=== PATIENT | male | born 2000 | race Caucasian/White ===

== ENCOUNTER 2023-03-10 14:38 | Inpatient (IN) ==
--- NOTE | 2023-03-10 14:49 | ED Triage Note ---
Date of Service March 10, 2023 Provider in Triage Author: Ginette Mendosa History of Present Illness This patient was briefly evaluated while in triage. An abbreviated physical exam was performed. This patient is a 22-year-old Male who presents to the ED for evaluation of "I have an obstructed and infected kidney on the right side." Pt. was seen in the ED at [facility] and referred here. Symptoms of right lower abdominal pain and burning/blood with urination started yesterday. Brief review of external medical records ([facility] ED records): CT abd/pelvis with IV contrast impression: Severe right hydronephrosis without visible calculus, likely due to chronic UPJ obstruction. Physical Exam VITALS: Vitals are noted on the nurse's note and reviewed by myself. GENERAL: This is a 22 year old male, in no acute distress, nondiaphoretic, well- developed well-nourished. SKIN: No obvious rashes, edema, erythema HEAD: Normocephalic atraumatic. EYES: Conjunctivae without injection, sclerae without icterus. NECK: No JVD. LUNGS: No retractions or accessory muscle use. MUSCULOSKELETAL: Normal gait. NEURO: Patient was alert and oriented to person place and time. No focal neurological deficits. Initial orders for labs and / or imaging were placed and patient was placed in the waiting area until a bed is available. Please see further documentation for the full ED course. MDM / Impression Impression Impression: Acute right flank pain, MIRIAM (acute kidney injury), Hydronephrosis, Leukocytosis, Acute UTI Impression: Hydronephrosis Qualifiers: Hydronephrosis type: with other ureteral stricture Qualified Code(s): N13.1 - Hydronephrosis with ureteral stricture, not elsewhere classified Leukocytosis Qualifiers: Leukocytosis type: unspecified Qualified Code(s): D72.829 - Elevated white blood cell count, unspecified
[2023-03-10] MEDS ORDERED: SODIUM CHLORIDE 0.9% 1,000 ML IV STA (15:40)
[2023-03-10] MEDS ORDERED: ACETAMINOPHEN 1,000 MG/100 ML VIAL IV STA (16:08)
[2023-03-10 16:13] LABS: Basophils # (auto) 0.03 K/uL (0.00-0.20); Basophils % (auto) 0.2 %; Hematocrit (blood only) 45.8 % (42.0-52.0); Hemoglobin 15.8 g/dl (14.0-18.0); Immature Granulocytes # (auto) 0.07 K/uL (0.01-0.20); Immature Granulocytes % (auto) 0.4 %; Lymphocytes # (auto) 1.07 K/uL (1.20-3.40); Lymphocytes % (auto) 6.7 %; Mean Corpuscular Hemoglobin 29.4 pg (25.0-34.0); Mean Corpuscular Hgb Conc 34.5 g/dL (32.0-36.0); Mean Corpuscular Volume 85.1 fL (80.0-100.0); Mean Platelet Volume 10.3 fL (9.4-12.4); Monocytes # (auto) 1.51 K/uL (0.11-0.59); Monocytes % (auto) 9.4 %; Neutrophils # (auto) 13.39 K/uL (1.40-6.50); Neutrophils % (auto) 83.3 %; Platelet Count 172 K/uL (130-400); RDW Coefficient of Variation 12.9 % (11.5-14.5); RDW Standard Deviation 39.6 fL (36.4-46.3); Red Blood Count 5.38 M/uL (4.70-6.10); White Blood Count 16.07 K/ul (4.8-10.8)
--- NOTE | 2023-03-10 16:16 | Emergency Department Note ---
Impression & Plan Acute right flank pain, MIRIAM (acute kidney injury), Hydronephrosis, Leukocytosis, Acute UTI ED Provider Note NAME: MARYBETH KOEHLER AGE: 22 SEX: M : 2000 ARRIVES VIA: Walk-In INFORMANT: [Patient][mother] ED PROVIDER(S): [Celso Barrow MD] CHIEF COMPLAINT: Flank pain HISTORY OF PRESENT ILLNESS: The patient is a 22-year-old male who presents to the ED with right flank pain that began this morning. The patient did notice some blood in the urine and some burning with urination. He felt some nausea. The patient has a history of right UPJ obstruction. The patient went to the [place] ED, he was found to have a severe hydronephrosis on the right secondary to UPJ obstruction. This was diagnosed by CT imaging. Urology was not available at [place]. Patient was to be a direct admit to our hospital however, there were no beds available. He was sent to our ER for evaluation. PMHx/PSHx/Social Hx: See Below PHYSICAL EXAM: GENERAL: Patient is in no acute distress. HEENT: No acute trauma, normocephalic atraumatic, mucous membranes moist, no nasal congestion. NECK: No stridor, no adenopathy, no meningismus, trachea is midline. LUNGS: Clear to auscultation bilaterally, no wheeze, no rhonchi, breath sounds equal. HEART: Without murmurs gallops or rubs, regular rate and rhythm. ABDOMEN: Soft, nontender, no peritonitis. EXTREMITIES: No cyanosis, full range of motion of all the joints without pain or difficulty. NEUROLOGIC: Oriented x 3, no acute motor or sensory deficits, no focal weakness. SKIN: No jaundice, no diaphoresis. DIFFERENTIAL DIAGNOSIS: Hydronephrosis, ureteral obstruction, renal stone, pyelonephritis, renal failure, UTI, among others. EMERGENCY DEPARTMENT PROCEDURES: MEDICAL DECISION MAKING: There is a moderate leukocytosis, this certainly could be consistent with infection. There was a normal hemoglobin and platelet count. There was evidence for some mild acute kidney injury with a creatinine of 1.67. No electrolyte abnormality in need of emergent correction. No concerning liver enzyme elevation. No evidence for pancreatitis. Urinalysis was consistent with infection, urine culture is pending. KUB shows right-sided hydronephrosis without any obvious ureteral stone. On exam, the patient was not toxic or febrile. He was only in minimal discomfort during my evaluation. The patient was given IV Tylenol, IV ceftriaxone, IV saline. The patient is in need of a hospital stay. He appears to have a urinary obstruction and potentially a UTI. I did speak with urology, Dr. Reed. The patient is to be hospitalized. Urology will see the patient in consult. I spoke with the patient and his family, I spoke with case management. The on- call hospitalist was consulted. Prior/Outside records/notes reviewed: ED workup from the [place] [facility] ER from earlier today. Imaging/x-ray results per my interpretation: KUB does show right-sided hydronephrosis. No obvious ureteral stone. Chronic Medical/Social conditions affecting care: UPJ obstruction. Care/Management discussed with: Urology-Dr. Reed, case management and the on- call hospitalist Level of care consideration(s): After review of the information above and other included data: --I believe the patient requires escalation of care to admission DISPOSITION: Admission with urology consult Past Med/Surg History Medical History UPJ (ureteropelvic junction) obstruction Social History Smoking Status: Never smoker Preferred Language: Upper Sorbian Feels Safe at Home: Yes Allergies Allergies Allergy/AdvReac Type Severity Reaction Status Date / Time pineapple Allergy Intermediate Redness of Verified 03/10/23 21:30 Skin-with pineapple juice Home Meds Home Medications Medication Instructions Recorded Confirmed No Known Home Medications 03/10/23 03/10/23 Results & Data (ED) Vital Signs Vital Signs - 24 hr 03/10/23 14:46 Temperature 36.7 C Temperature Source Temporal Artery Scan Pulse Rate 117 H Respiratory Rate 18 Respiratory Effort / Characteristics Non-Labored Spontaneous Respiratory Depth Normal Blood Pressure 118/94 Blood Pressure Mean 102 Blood Pressure Position Sitting Pulse Oximetry 94 Oxygen Delivery Method Room Air Sepsis Recent Fever Within 48 Hours No Sepsis New/Unexplained Change in Mental Status No Sepsis Action Taken by Nursing No Action Required Home Medications Current Medication List: was personally reviewed by me Laboratory Data Attestation: I reviewed the patient's lab results. 03/10/23 15:52 03/10/23 15:52 Lab Results 03/10/23 03/10/23 Range/Units 15:52 16:11 WBC 16.07 H (4.8-10.8) K/ul RBC 5.38 (4.70-6.10) M/uL Hgb 15.8 (14.0-18.0) g/dl Hct 45.8 (42.0-52.0) % MCV 85.1 (80.0-100.0) fL MCH 29.4 (25.0-34.0) pg MCHC 34.5 (32.0-36.0) g/dL RDW Std Deviation 39.6 (36.4-46.3) fL RDW Coeff of Al[place] 12.9 (11.5-14.5) % Plt Count 172 (130-400) K/uL MPV 10.3 (9.4-12.4) fL Immature Gran % (Auto) 0.4 % Neut % (Auto) 83.3 % Lymph % (Auto) 6.7 % [place] % (Auto) 9.4 % Eos % (Auto) 0.0 % Baso % (Auto) 0.2 % Neut # (Auto) 13.39 H (1.40-6.50) K/uL Lymph # (Auto) 1.07 L (1.20-3.40) K/uL [place] # (Auto) 1.51 H (0.11-0.59) K/uL Eos # (Auto) 0.00 (0.00-0.50) K/uL Baso # (Auto) 0.03 (0.00-0.20) K/uL Immature Gran # (Auto) 0.07 (0.01-0.20) K/uL Sodium 136 (136-145) mmol/L Potassium 4.2 (3.5-5.1) mmol/L Chloride 100 (98-107) mmol/L Carbon Dioxide 26 (21-32) mmol/L Anion Gap 10 (3-11) BUN 24 H (6-23) mg/dl Creatinine 1.67 H (0.6-1.4) mg/dl Est Cr Clr Drug Dosing 69.1 ml/min Est GFR ( Amer) 65.4 ml/min Est GFR (Non-Af Amer) 56.4 ml/min BUN/Creatinine Ratio 14.4 (10-20) Glucose 97 (70-99(Fasting)) mg/dl Calcium 10.2 (8.6-10.3) mg/dl Total Bilirubin 0.8 (0.2-1.0) mg/dl AST 18 (13-39) U/L ALT 16 (7-52) U/L Alkaline Phosphatase 66 (34-104) U/L Total Protein 8.0 (6.0-8.3) gm/dl Albumin 4.7 (3.4-5.0) gm/dl Globulin 3.3 (2.5-4.0) gm/dl Albumin/Globulin Ratio 1.4 (0.9-2) Lipase 27 (11-82) U/L Urine Color Dark Yellow Urine Appearance Clear (Clear) Urine pH 6.0 (4.5-7.5) Ur Specific Yale > 1.045 H (1.000-1.030) Urine Protein 2+ H (Negative) Urine Glucose (UA) Negative (Negative) Urine Ketones Trace H (Negative) Urine Blood 3+ H (Negative) Urine Nitrite Negative (Negative) Urine Bilirubin Negative (Negative) Urine Urobilinogen Negative (Negative) Ur Leukocyte Esterase Negative (Negative) Urine WBC (Auto) >30 H (0-5) /hpf Urine RBC (Auto) 5-10 H (0-4) /hpf U Hyaline Cast (Auto) 1-5 (0-5) /lpf U Epithel Cells (Auto) 5-10 H (0-5) /lpf Urine Bacteria (Auto) Negative (Negative) Urine Yeast Not Reportable Administered Medications Acetaminophen (Acetaminophen 325 Mg Tab) 650 mg PO Q4H PRN PRN Reason: pain/fever Stop: 04/09/23 21:27 Last Admin: 03/10/23 21:42 Dose: 650 mg Documented By: JUANA Lactated Ringer's (Lr) 1,000 mls @ 125 mls/hr IV .Q8H HUMA Stop: 04/09/23 21:27 Last Admin: 03/10/23 21:43 Dose: 125 mls/hr Documented By: JUANA Discontinued Medications Sodium Chloride (Nss) 1,000 mls @ 999 mls/hr IV .Q1H1M STA Stop: 03/10/23 16:40 Last Infusion: 03/10/23 17:03 Dose: Infused Documented By: Admin: 03/10/23 15:50 Dose: 999 mls/hr Documented By: MES Acetaminophen (Ofirmev) 1,000 mg in 100 mls @ 400 mls/hr IV NOW STA Stop: 03/10/23 16:22 Last Infusion: 03/10/23 17:03 Dose: Infused Documented By: Admin: 03/10/23 16:38 Dose: 400 mls/hr Documented By: ACC Ceftriaxone Sodium (Rocephin) 2,000 mg in 50 mls @ 100 mls/hr IV NOW STA Stop: 03/10/23 16:54 Last Infusion: 03/10/23 18:40 Dose: Infused Documented By: Admin: 03/10/23 16:43 Dose: 100 mls/hr Documented By: ACC Imaging Data Radiologist's Impression: KUB X-Ray 03/10/23 15:54 KUB HISTORY: Right-sided ureteral stone ureteral stone COMPARISON: None. FINDINGS: Nonobstructive bowel gas pattern. Contrast is noted within a nondilated left renal collecting system. Contrast opacified right renal collecting system and renal pelvis demonstrates severe hydronephrosis with blunting of the calyces. Decompressed urinary bladder contains a trace amount of contrast. No definite renal or ureteral calculi identified. No pneumoperitoneum or pneumatosis. No fracture. IMPRESSION: Severe right-sided hydronephrosis. ACT 112: Negative or not required by law. The above report was generated using voice recognition software. It may contain grammatical, syntax or spelling errors. Electronically signed by: Enrique Chandler M.D. 03/10/2023 4:24 PM Discharge Plan Visit Data Chief Complaint: Flank Pain Stated Complaint: OBSTRUCTED,INFECTED R KIDNEY ED Provider: Celso Barrow Discharge Problem: Acute right flank pain, MIRIAM (acute kidney injury), Hydronephrosis, Leukocytosis, Acute UTI Patient Disposition: Admitted As Inpatient Condition: Fair Discharge Instructions Interventions: ED Discharge Assessment Last Done: 03/10/23 21:11 Discharge Problem: Hydronephrosis Qualifiers: Hydronephrosis type: with other ureteral stricture Qualified Code(s): N13.1 - Hydronephrosis with ureteral stricture, not elsewhere classified Leukocytosis Qualifiers: Leukocytosis type: unspecified Qualified Code(s): D72.829 - Elevated white blood cell count, unspecified
[2023-03-10] MEDS ORDERED: cefTRIAXone SODIUM 2,000 MG/50 ML BAG IV STA (16:25)
--- NOTE | 2023-03-10 16:25 | XRay Report ---
KUB HISTORY: Right-sided ureteral stone ureteral stone COMPARISON: None. FINDINGS: Nonobstructive bowel gas pattern. Contrast is noted within a nondilated left renal collect ing system. Contrast opacified right renal collecting system and renal pelvis demonstrates severe hyd ronephrosis with blunting of the calyces. Decompressed urinary bladder contains a trace amount of con trast. No definite renal or ureteral calculi identified. No pneumoperitoneum or pneumatosis. No fract ure. IMPRESSION: Severe right-sided hydronephrosis. ACT 112: Negative or not required by law. The above report was generated using voice recognition software. It may contain grammatical, syntax o r spelling errors. Electronically signed by: Enrique Chandler M.D. 03/10/2023 4:24 PM
[2023-03-10 16:28] LABS: Albumin Globulin Ratio 1.4 (0.9-2); Albumin Level 4.7 gm/dl (3.4-5.0); BUN Creatinine Ratio 14.4 (10-20); Bilirubin,Total 0.8 mg/dl (0.2-1.0); Calcium 10.2 mg/dl (8.6-10.3); Creatinine Clr Calc Pharmacy 69.1 ml/min; Est GFR (African American) 65.4 ml/min; Est GFR (Non-African American) 56.4 ml/min; Globulin 3.3 gm/dl (2.5-4.0); Potassium 4.2 mmol/L (3.5-5.1)
[2023-03-10 17:43] LABS: Appearance Urine Clear (Clear); Bacteria Urine Automated Negative (Negative); Bilirubin Urine Negative (Negative); Blood Urine 3+ (Negative); Color Urine Dark Yellow; Glucose Urine UA Negative (Negative); Ketones Urine Trace (Negative); Leukocyte Esterase Urine Negative (Negative); Nitrite Urine Negative (Negative); Protein Urine 2+ (Negative); Specific Gravity Urine > 1.045 (1.000-1.030); Urobilinogen Urine Negative (Negative); WBC Urine Automated >30 /hpf (0-5)
--- NOTE | 2023-03-10 18:06 | History & Physical Report ---
Date of Service March 10, 2023 Assessment & Plan (1) UPJ (ureteropelvic junction) obstruction: (2) Urinary tract infection: (3) MIRIAM (acute kidney injury): Plan Patient is a 22 yo M w/ a PMHx of left inguinal hernia and right-sided kidney stone (summer 2021) who presents today to [facility] ED after coming here from [place] with r. flank pain, hematuria, and a evidence of right-sided hydronephrosis on CT of the abdomen. 1. R. ureteral-pelvic junction obstruction, right-sided hydronephrosis - KUB at [facility] indicated severe r.-sided hydronephrosis - CT-Ab ([place]): 1. severe r. hydronephrosis w/out visible calculus, likely due to UPJ obstruction; 2. large, fatty l. inguinal hernia - UA: Protein, 2+; Blood, 3+; ketones, trace; RBC, 5-10; WBC, > 30 - Urology consulted --> make pt NPO at midnight, re-evaluate pt tomorrow morning for possibility of ureteral-renal stent placement - Acetaminophen, 650 mg, PO, q4hrs, PRN for pain - fluids, LR, 125 mL/hr 2. UTI - UA: Protein, 2+; Blood, 3+; ketones, trace; RBC, 5-10; WBC, > 30 - admission serum WBC, 16; tachycardic w/ HR 117 - urine Cx pending, blood Cx pending - Rocephin, 2000 mg, IV, q24 hrs 3. Suspected MIRIAM - pt w/ Cr, 1.67 on admission - fluids, LR, 125 mL/hr FENGI: LR, 125 mL/hr ; Diet, Reg, NPO at midnight Code: Full DVT prophylaxis: none Disposition: Med-Surg History of Present Illness Chief Complaint: r. sided flank pain Primary Care Provider: EDIN Webber The patient is a 22-year-old male who presents to the ED with right flank pain that began this morning. The patient did notice some blood in the urine and some burning with urination. He felt some nausea, but did not vomit. the patient has felt feverish, but did not take his temp. The patient went to the [place] ED, he was found to have a severe hydronephrosis on the right secondary to UPJ obstruction. This was diagnosed by CT imaging. Urology was not available at [place]. Patient was to be a direct admit to our hospital however, there were no beds available. He was sent to our ER for evaluation. Patient had a CT-abdomen done while at [place], had the file on a CD-ROM, gave it to the urologist who uploaded it to Pt has no family hx of kidney stones or UPJ obstruction that he is aware of, though he does not have relationship w/ biological father. The patient has a personal medical history of right UPJ obstruction. Patient had previously had UPJ obstruction in summer, which he went to ED for, pt took pain and other meds and it resolved a few days after getting d/c'ed. They talked about putting in stent but pt was working in [place] at time, was returning to [place] and could not schedule that surg in [place]. Allergies Allergy/AdvReac Type Severity Reaction Status Date / Time pineapple Allergy Intermediate Redness of Verified 03/10/23 21:30 Skin-with pineapple juice Home Medications Medication Instructions Recorded Confirmed Type No Known Home Medications 03/10/23 03/10/23 History Past Med/Surg History Medical History UPJ (ureteropelvic junction) obstruction Social History Smoking Status: Never smoker Hx Alcohol Use: Yes Alcohol type: beer and hard liquor Hx Substance Use: No Preferred Language: Irish Communication Ability: Effective Money Examiner Required: No Beliefs That Will Affect Care: None Current Living Situation: Family Other Information That Helps Us Care for You: No Feels Safe at Home: Yes Safety Concerns: Feels Safe At This Time Review of Systems Constitutional: no fever, no chills and no fatigue Respiratory: no cough and no dyspnea Cardiovascular: no chest pain and no palpitations Gastrointestinal: + nausea; no abdominal pain, no vomiting , no constipation and no diarrhea/loose stools Genitourinary: + dysuria, + urinary frequency, + hematu anthony, + flank pain (r. side flank pain) and + urinary urgency Neurologic: + headache(s) (3/10 BARNARD); no tingling, no numbness and no dizziness Physical Exam Constitutional: WD/WN, vitals as above Respiratory: normal respiratory effort, lungs clear to auscultation Cardiovascular: RRR, no murmur, no edema Gastrointestinal (Abdomen): normal bowel sounds, soft, nontender, no hepatosplenomegaly Psychiatric: A+Ox3, euthymic affect Genitourinary: + CVA tenderness (r. side (10 w/ pain meds; 10 before meds)) Results & Data Results & Data Vital Signs (Past 12 Hours) Vital Signs Temp Pulse Resp BP Pulse Ox O2 Del Method 03/10/23 14:46 36.7 C 117 H 18 118/94 94 Room Air Supervising Physician Co-Signing Physician Notes I personally saw and examined the patient. I verified all galvez points and agree with resident physician Dr Rylan Simental, with the following exceptions and/or additions: 22 year old male presents to the ER with right flank pain, fever, dysuria and hematuria starting this morning. Sent from [facility] due to no urology coverage there by private vehicle. No blood cultures taken there however urine culture was taken. Patient reports antibiotics given however no information sent with patient indicated what was given. O/E Non-septic appearing, HS RRR, no murmurs, Chest CTAB, Abdo right sided mild pain without guarding or rebound tenderness, no CVA tenderness A/P Suspected chronic right VUJ obstruction with hydronephrosis - concerning now in setting of infection may need ureteral stent, consult urology - discussed with Dr Reed after patient spiked a fever and ongoing non-septic appearance will hold overnight UTI - do not suspect sepsis despite WBC and tachycardia given overall appearance of patient - suspect he just amounts a high immune reaction given his young age. CVA tenderness to suspect pyelonephritis, no blood cultures taken at [facility] therefore taken here however significant time lapse after antibiotics of this. Urine culture taken at [facility] will be most accurate. Suspected MIRIAM - unknown baseline, Cr 1.67 above what would be expected for 22 year old. Suspect somewhat post obstructive. Resident Activity Tracking Resident Involvement: Resident Care Provided Care Provided: Adult Hospital Medicine
[2023-03-10] MEDS ORDERED: ONDANSETRON 4 MG OD TAB PO PRN (18:50)
--- NOTE | 2023-03-10 18:55 | Urology Consultation ---
Date of Consultation March 10, 2023 Assessment & Plan (1) UPJ (ureteropelvic junction) obstruction: (2) Urinary tract infection: Plan We reviewed that his clinical picture is concerning for urinary tract infection in the setting of chronic right UPJ obstruction. Since he has largely been asymptomatic on the right side, I suspect there is some degree of drainage of his kidney. We discussed that he may improve with antibiotic treatment alone. We also discussed that if he worsens clinically or does not improve, we may need to proceed to cystoscopy, retrograde pyelogram and right ureteral stent placement to decompress the kidney. We also discussed that this may be the indicator that leads us to pursue more definitive repair of his UPJ to prevent further episodes like this. For now, we will plan to manage with antibiotics and supportive care. Please make NPO at midnight on 03/11/2023 in anticipation of reassessment. Urology will follow along. History of Present Illness Reason for Consultation: Urinary tract infection, hydronephrosis Attending Physician: Celso Barrow MD History of Present Illness This is a 22-year-old male previously seen by urology for right UPJ obstruction. At that time, he had known about the history for approximately 1 year, was having occasional flank pain. At that time, endopyelotomy, dismembered pyeloplasty were discussed. He wanted to continue to monitor for the time being. Over the past 2 days he has had gradually worsening flank pain radiating down to his bladder. He has some dysuria in the urethra, bladder and in the kidney. He reports feeling hot off-and-on but denies shaking chills. He presented to an outside emergency department on 03/10/2023 for evaluation. Per report, CT scan was performed which demonstrated right-sided hydronephrosis and suspicion for UPJ obstruction. Due to no urology coverage at that facility, he was transfe rred to [facility]. Here, he is still having some nausea and discomfort. Lab work is notable for leukocytosis (WBC 16.07). Creatinine is somewhat elevated at 1.67. Urinalysis is notable for 3+ blood, negative bacteria, negative nitrites. He brought the CT scan from the outside facility, however images have not yet been uploaded for review. He reports drinking some milk earlier in the day. Allergies Allergy/AdvReac Type Severity Reaction Status Date / Time PINEAPPLE JUICE Allergy Intermediate Redness of Uncoded 03/10/23 17:11 Skin Home Medications Medication Instructions Recorded Confirmed Type No Known Home Medications 03/10/23 03/10/23 History Patient History Social History Smoking Status: Never smoker Preferred Language: Georgian Feels Safe at Home: Yes Review of Systems Review of Systems: 12 point review of systems negative exce pt for otherwise indicated. Physical Exam Constitutional: well developed and well nourished; no acute distress Eyes: + anicteric sclerae; pupils not irregula r Respiratory: normal respiratory effort; no respiratory distress, does not use accessory muscles and no cough Cardiovascular: well perfused Gastrointestinal (Abdomen): Inspection/Auscultation: abdomen normal to inspection; abdomen not distended Musculoskeletal: Extremities: extremities normal to inspection Skin: normal turgor; no rashes and no lesions Neurologic: moves all extremities and awake Psychiatric: Orientation: alert and oriented x 3 Results & Data Vital Signs (Past 12 Hours) Vital Signs Temp Pulse Resp BP Pulse Ox O2 Del Method 03/10/23 14:46 36.7 C 117 H 18 118/94 94 Room Air PG Care Time/CCT Total # of Minutes Spent Total Time Spent with Patient: Total time spent is greater than 50% in coordination of care (as documented) at patient's floor/unit and/or counseling patient: Coding Level of Care Code 68211 OP VST NEW MOD 45-59 MIN Diagnoses UPJ (ureteropelvic junction) obstruction N13.5 Urinary tract infection N39.0
[2023-03-10] MEDS: ACETAMINOPHEN 325 MG TAB PO PRN (21:42)
[2023-03-10] MEDS: LACTATED RINGER'S 1,000 ML IV SCH (21:43)
[2023-03-11] MEDS: ACETAMINOPHEN 325 MG TAB PO PRN ×4 (01:38→20:34)
[2023-03-11] MEDS ORDERED: HYDROmorphone INJ 0.5 MG/0.5 ML SYR IV STA (02:27)
[2023-03-11] MEDS: LACTATED RINGER'S 1,000 ML IV SCH ×2 (05:31→13:45)
[2023-03-11 07:40] LABS: Basophils # (auto) 0.02 K/uL (0.00-0.20); Basophils % (auto) 0.1 %; Hematocrit (blood only) 38.7 % (42.0-52.0); Hemoglobin 13.3 g/dl (14.0-18.0); Immature Granulocytes # (auto) 0.12 K/uL (0.01-0.20); Immature Granulocytes % (auto) 0.7 %; Lymphocytes # (auto) 0.51 K/uL (1.20-3.40); Mean Corpuscular Hemoglobin 29.4 pg (25.0-34.0); Mean Corpuscular Hgb Conc 34.4 g/dL (32.0-36.0); Mean Corpuscular Volume 85.4 fL (80.0-100.0); Mean Platelet Volume 10.4 fL (9.4-12.4); Monocytes # (auto) 1.67 K/uL (0.11-0.59); Monocytes % (auto) 9.7 %; Neutrophils # (auto) 14.87 K/uL (1.40-6.50); Neutrophils % (auto) 86.5 %; Platelet Count 123 K/uL (130-400); RDW Coefficient of Variation 12.7 % (11.5-14.5); RDW Standard Deviation 39.5 fL (36.4-46.3); Red Blood Count 4.53 M/uL (4.70-6.10); White Blood Count 17.19 K/ul (4.8-10.8)
[2023-03-11 07:46] LABS: BUN Creatinine Ratio 12.9 (10-20); Calcium 8.8 mg/dl (8.6-10.3); Creatinine Clr Calc Pharmacy 65.2 ml/min; Est GFR (African American) 60.5 ml/min; Est GFR (Non-African American) 52.2 ml/min; Potassium 3.8 mmol/L (3.5-5.1)
--- NOTE | 2023-03-11 08:17 | Billing Data ---
Date of Service March 10, 2023 Coding Level of Care Code 24892 INT INP/OBS CARE
[2023-03-11] MEDS ORDERED: MoRPHine SULFATE 2 MG/ML CARP IV STA (09:05)
--- NOTE | 2023-03-11 10:13 | Urology Progress Note ---
Date of Service March 11, 2023 Assessment & Plan (1) UPJ (ureteropelvic junction) obstruction: (2) Acute UTI: Plan 22yo/M with a hx of chronic UPJ obstruction admitted with concern for UTI/Pyelo. He initially presented to an outside emergency department on 03/10/2023 for ev aluation. Per report, CT scan was performed which demonstrated right-sided hydronephrosis and suspicion for UPJ obstruction. Due to no urology coverage at that facility, he was transferred to [facility]. - No reported flank pain this morning. - Afebrile at present. Hypertensive and tachycardic. - Labs reviewed - WBC 16.07 yesterday-17.19 today, Hemoglobin 13.3, Creatinine 1 .78 today (prior was 1.67). - Urine and blood cultures are pending. On Ceftriaxone. - Voiding spontaneously, continue to monitor. - We reviewed that his clinical picture is concerning for urinary tract infection in the setting of chronic right UPJ obstruction. Discussed recommendation for right ureteral stent placement today given fever overnight with his slightly worsening leukocytosis and renal function today. Ureteral stents were discussed as well as postoperative issues and pain management. Expected clinical course reviewed. All questions were answered. - Patient declines stent placement today. He reports feeling better overall and would prefer to avoid a procedure/stent if possible. At the present time, he prefers to manage conservatively with supportive care and antibiotic therapy. Risks of this were discussed including worsening infection and/or pain and he verbalized an understanding. - No plan for urological intervention at this time. - For now, we will plan to manage with antibiotics and supportive care. - Recommend NPO at midnight to reassess in the morning. - Please consult our service urgently if patient develops fever >101F, intractable pain, or other acute changes as this may necessitate urgent surgical intervention. - Discussed with hospitalist. - Urology will follow along. Plan of care reviewed with Dr. Hardin, on-call urologist. Admission and Anticipated Discharge Date Admission Date: March 10, 2023 Subjective Pt examined at bedside this AM. Awake, resting in bed on arrival. No acute distress. Reports he is feeling better today than yesterday. Was febrile overnight at 38.9C and tachycardic. He denies any significant pain or discomfort at present. Denies fever, chills, nausea, or vomiting at present. States he is voiding without issues. Denies hematuria or dysuria. Has been NPO. Review of Systems Constitutional: as per Subjective / HPI Gastrointestinal: as per Subjective / HPI Genitourinary: + as per Subjective / HPI Physical Exam Constitutional: no acute distress Respiratory: no respiratory distress and no labored breathing Musculoskeletal: Head/Neck/Chest: normocephalic Skin: No visible rashes or lesions to exposed skin areas Neurologic: moves all extremities and awake Psychiatric: A+Ox3, euthymic affect Results & Data Vital Signs (Past 12 Hours) Vital Signs Temp Pulse Resp BP BP Pulse Ox O2 Del Method 03/11/23 07:26 37.2 C 121 H 18 168/84 H 94 Room Air 03/11/23 04:34 36.7 C 114 H 16 141/88 H 95 Room Air 03/11/23 02:10 36.7 C 03/11/23 01:18 37.7 C H 116 H 18 140/83 95 Room Air 03/10/23 22:50 36.8 C 110 H 18 120/77 95 Room Air PG Care Time/CCT Total # of Minutes Spent Total Time Spent with Patient: Total time spent is greater than 50% in coordination of care (as documented) at patient's floor/unit and/or counseling patient: Coding Level of Care Code 14204 SUB INP/OBS CARE 2/35MIN Diagnoses UPJ (ureteropelvic junction) obstruction N13.5 Acute UTI N39.0
[2023-03-11] MEDS: MoRPHine SULFATE 2 MG/ML CARP IV PRN ×2 (13:45→18:06)
[2023-03-11 14:56] LABS: Hematocrit (blood only) 39.3 % (42.0-52.0); Hemoglobin 13.4 g/dl (14.0-18.0); Mean Corpuscular Hemoglobin 29.1 pg (25.0-34.0); Mean Corpuscular Hgb Conc 34.1 g/dL (32.0-36.0); Mean Corpuscular Volume 85.4 fL (80.0-100.0); Mean Platelet Volume 10.2 fL (9.4-12.4); Platelet Count 110 K/uL (130-400); RDW Coefficient of Variation 12.6 % (11.5-14.5); RDW Standard Deviation 39.1 fL (36.4-46.3); White Blood Count 13.81 K/ul (4.8-10.8)
[2023-03-11 15:08] LABS: BUN Creatinine Ratio 10.7 (10-20); C Reactive Protein 20.58 mg/dl (0-0.5); Calcium 8.4 mg/dl (8.6-10.3); Creatinine Clr Calc Pharmacy 62.1 ml/min; Est GFR (Non-African American) 49.2 ml/min
[2023-03-11] MEDS ORDERED: cefTRIAXone SODIUM 2,000 MG in DEXTROSE 5 % MINI-B 50 ML IV SCH (16:00)
[2023-03-11] MEDS ORDERED: ERTAPENEM SODIUM 1,000 MG in SYRINGE 0 ML IV SCH (17:00)
[2023-03-11] MEDS ORDERED: MIDAZOLAM HCL 1 MG/ML 2ML VIAL ONE (18:12)
[2023-03-11] MEDS ORDERED: fentaNYL citrate PF 100 MCG/2 ML VIAL ONE ×2 (18:12→19:36)
[2023-03-11] MEDS ORDERED: LIDOCAINE 2% 2 ML VIAL/AMP(20MG/ML) INFIL ONE (18:19)
[2023-03-11] MEDS ORDERED: PROPOFOL IV EMULSION 10 MG/ML 20 ML VIAL IV ONE ×2 (18:19→19:37)
[2023-03-11] MEDS ORDERED: ONDANSETRON INJ 2 MG/ML 2 ML VIAL ONE (18:19)
--- NOTE | 2023-03-11 18:31 | Anesthesiology Consultation ---
Date of Service March 11, 2023 Assessment & Plan Chart Review Chart Review: Acceptable Risk for Surgery Consults Requested none ASA [id number] Proposed Anesthesia Anesthesia Type: MAC (w GA if needed) History Surgery Operation Date: 03/11/23 19:00 Proposed Procedures p Cystoscopy, Right Stent Placement(Right) - Arthur Hardin, DO Height/Weight Height: 5 ft 7 in Weight: 81 kg Allergies Allergy/AdvReac Type Severity Reaction Status Date / Time pineapple Allergy Intermediate Redness of Verified 03/10/23 21:30 Skin-with pineapple juice Medications Home Medications Medication Instructions Recorded Confirmed Last Taken No Known Home Medications 03/10/23 03/10/23 Unknown Active Medications Generic Name Dose Route Start Last Admin Trade Name Freq PRN Reason Stop Dose Admin Acetaminophen 650 mg 03/10/23 21:28 03/11/23 15:44 Acetaminophen 325 Mg Tab PO 04/09/23 21:27 650 mg Q4H PRN Administration pain/fever Lactated Ringer's 1,000 mls @ 125 mls/hr 03/10/23 21:28 03/11/23 13:45 Lr IV 04/09/23 21:27 125 mls/hr .Q8H HUMA Administration Ertapenem 1,000 mg/ Syringe 10 mls @ 2 mls/min 03/11/23 17:00 03/11/23 17:11 IV 03/21/23 16:59 2 mls/min Q24H HUMA Administration Morphine Sulfate 1 mg 03/11/23 09:19 03/11/23 18:06 Morphine Sulfate 2 Mg/Ml Carp IV 03/25/23 09:18 1 mg Q3H PRN Administration Pain NPO Date Last Intake of Fluids: 03/10/23 Time Last Intake of Fluids: 23:00 Date Last Intake of Solids: 03/10/23 Time Last Intake of Solids: 23:00 Past Medical History Medical History UPJ (ureteropelvic junction) obstruction Social History Smoking Status: Never smoker Hx Alcohol Use: Yes Alcohol type: beer and hard liquor alcohol intake frequency: holidays/special occasions only Hx Substance Use: No substance use type: does not use Physical Exam Vital Signs Last Vital Signs Temp 37.4 C 03/11/23 18:15 Pulse 115 H 03/11/23 18:15 Resp 21 03/11/23 18:15 BP 123/88 03/11/23 18:15 Pulse Ox 98 03/11/23 18:15 O2 Del Method Room Air 03/11/23 18:15 O2 Flow Rate 0 03/11/23 11:00 Testing Laboratory Results 03/11/23 14:35 03/11/23 14:35 Urine Color Dark Yellow 03/10/23 16:11 Urine Appearance Clear (Clear) 03/10/23 16:11 Urine pH 6.0 (4.5-7.5) 03/10/23 16:11 Ur Specific [place] > 1.045 (1.000-1.030) H 03/10/23 16:11 Urine Protein 2+ (Negative) H 03/10/23 16:11 Urine Glucose (UA) Negative (Negative) 03/10/23 16:11 Urine Ketones Trace (Negative) H 03/10/23 16:11 Urine Nitrite Negative (Negative) 03/10/23 16:11 Ur Leukocyte Esterase Negative (Negative) 03/10/23 16:11 Urine WBC (Auto) >30 /hpf (0-5) H 03/10/23 16:11 Urine RBC (Auto) 5-10 /hpf (0-4) H 03/10/23 16:11 U Hyaline Cast (Auto) 1-5 /lpf (0-5) 03/10/23 16:11 U Epithel Cells (Auto) 5-10 /lpf (0-5) H 03/10/23 16:11 Urine Bacteria (Auto) Negative (Negative) 03/10/23 16:11 03/10/23 16:11 Urine Culture - Preliminary Urine,Clean Catch No growth - Less than 1,000 colonies/mL, Final report to follow.
[2023-03-11] MEDS ORDERED: KETOROLAC 30 MG/ML VIAL IV PRN (18:32)
[2023-03-11] MEDS ORDERED: PROMETHAZINE HCL 12.5 MG in SODIUM CHLORIDE 0.9% 50 ML IV PRN (18:32)
[2023-03-11] MEDS ORDERED: fentaNYL citrate PF 100 MCG/2 ML VIAL IV PRN (18:32)
[2023-03-11] MEDS ORDERED: ATROPINE SULFATE 0.1 MG/ML 10ML SYR IV PRN (18:32)
[2023-03-11] MEDS ORDERED: ePHEDrine sulfate 50 MG/ML AMP IV PRN (18:32)
[2023-03-11] MEDS ORDERED: HYDROmorphone INJ 2 MG/ML SYR/VIAL IV PRN (18:32)
[2023-03-11] MEDS ORDERED: ONDANSETRON INJ 2 MG/ML 2 ML VIAL IV PRN (18:32)
--- NOTE | 2023-03-11 18:43 | History & Physical Bridge Note ---
Date of Service March 11, 2023 History & Physical Bridge Note I have examined the patient, reviewed the History & Physical and in the interval since the performance of the History & Physical I have noted the following changes of clinical significance: Persistent fever and ill feelings. Patient considered options and wants to proceed with stent. Risks and benefits discussed at length for procedure. These include bleeding, infection, injury to surrounding tissues or organs, and risks associated with anesthesia. Patient states understanding and agrees to proceed. Will sign consent and proceed. Plan for cystoscopy with
[2023-03-11] MEDS ORDERED: DIATRIZOATE MEGLUMINE 30% 100ML VIAL INSTIL PRN (19:55)
--- NOTE | 2023-03-11 20:05 | Operative Report ---
PG Post Operative Report Pre & Post Diagnosis Operation Date: 03/11/23 19:00 Pre-Op Diagnosis: Ureteropelvic junction obstruction, acute urinary tract infection. Post-Op Diagnosis: Ureteropelvic junction obstruction, acute urinary tract infection. I identified the patient and participated in the time-out.: Yes Procedure Operation Date: 03/11/23 19:00 Actual Procedures p Cystoscopy with urethral Dilation. Right Stent Placement, Right Aspiration, and Right Retrograde pyelogram - Arthur Hardin DO Surgeon Arthur Hardin, II, DO Lens Generating Machine Tender None Estimated Blood Loss 1 Findings Consistent with Post-Op Diagnosis Stent placed in good position. Severe hydronephrosis with likely UPJ obstruction Significant meatal narrowing/stricture. Specimens Urine Right Kidney Drains 6 Fr x 26 Right Anesthesia Type MAC Complications none Disposition Disposition: Recovery Room Indications Patient with obstruction. Risks and benefits discussed at length. Description of Procedure Patient was consented and brought back to the operating room. Patient was placed under anesthesia in the supine position and moved to the dorsal lithotomy position. Patient was prepped and draped in the regular sterile fashion. A time out was completed. A 30 degree Cystoscope was placed into the urethra. The meatus was severely narrowed. A significant stricture was noted. The urethra was dilated. Once dilated the scope was placed and advance. No other areas of concern. The scope was placed into the bladder and the entire bladder was examined. The UO's were identified. Significant contrast was noted lingering in the right renal pelvis. The UO was cannulized with a catheter and urine was aspirated from the renal pelvis. This was sent for culture. A retrograde pyelogram was completed. A wire was then placed. With the wire in place, a 6 Fr Double J stent was placed. It was confirmed with fluoroscopy. With the stent in place, the bladder was emptied. The scope was removed. The patient was cleaned, aroused from anesthesia, and transferred to the pacu in stable condition having tolerated the procedure well with no complications. I was present and participated in all aspects of the procedure. The patient will be monitored in the PACU until transferred. Plan to monitor. Maintain antibiotics. Patient will likely need antibiotics and monitoring. May need to consider catheter if significant diuresis. I attest to the content of the Intraoperative Record and any orders documented therein. Any exceptions are noted below.
--- NOTE | 2023-03-11 20:35 | Anesthesiology Progress Note ---
Date of Service March 11, 2023 Anesthesia Post Procedure Vital Signs Vital Signs: Temp Pulse Pulse Pulse Resp BP BP 03/11/23 20:30 39.4 C H 106 H 23 111/79 03/11/23 20:20 101 H 18 100/81 03/11/23 20:10 109 H 22 101/62 03/11/23 20:04 37.3 C 114 H 23 112/51 L 03/11/23 18:15 37.4 C 115 H 115 H 21 123/88 03/11/23 17:57 126 H 03/11/23 16:27 37.1 C 03/11/23 15:39 39.5 C H 112 H 22 147/88 H 03/11/23 13:49 37.1 C 03/11/23 11:00 03/11/23 10:48 37.8 C H 18 130/80 03/11/23 07:26 37.2 C 121 H 18 168/84 H 03/11/23 04:34 36.7 C 114 H 16 141/88 H 03/11/23 02:10 36.7 C 03/11/23 01:18 37.7 C H 116 H 18 140/83 03/10/23 22:50 36.8 C 110 H 18 120/77 03/10/23 21:28 38.9 C H 121 H 18 149/80 H 03/10/23 21:00 83 18 132/69 Pulse Ox O2 Del Method O2 Flow Rate 03/11/23 20:30 96 Room Air 03/11/23 20:20 96 Oxymask 5 03/11/23 20:10 94 Oxymask 5 03/11/23 20:04 94 Oxymask 5 03/11/23 18:15 98 Room Air 03/11/23 17:57 03/11/23 16:27 03/11/23 15:39 93 Room Air 03/11/23 13:49 03/11/23 11:00 Room Air 0 03/11/23 10:48 96 Room Air 0 03/11/23 07:26 94 Room Air 03/11/23 04:34 95 Room Air 03/11/23 02:10 03/11/23 01:18 95 Room Air 03/10/23 22:50 95 Room Air 03/10/23 21:28 97 Room Air 03/10/23 21:00 100 Room Air Pain Intensity Right Lower Flank: Pain Intensity: 2 Transfer of Care Handoff Completed per policy Notes Mental Status: alert / awake / arousable and participated in evaluation Patient Amnestic to Procedure: Yes Nausea / Vomiting: adequately controlled Pain: adequately controlled Airway Patency, RR, SpO2: stable & adequate BP & HR: stable & adequate Hydration State: stable & adequate Anesthetic Complications: no major complications apparent
--- NOTE | 2023-03-11 20:57 | Fluoroscopy Report ---
INTRAOPERATIVE RADIOGRAPHS CLINICAL HISTORY: Right ureteral stent placement. Fluoro time: 20 seconds Ka,r: 6.39 mGy FINDINGS: 2 spot fluoroscopic views of the right abdomen are correlated with abdominal CT dated 03/10. The images show the proximal and distal ends of a right ureteral stent in appropriate position . Contrast in the right renal pelvis shows severe hydronephrosis. IMPRESSION: Intraoperative images from a right ureteral stent placement procedure as above. Electronically signed by: Celso Chapman M.D. 03/11/2023 8:54 PM
--- NOTE | 2023-03-11 22:28 | Hospitalist Progress Note ---
Date of Service March 11, 2023 Assessment & Plan (1) UPJ (ureteropelvic junction) obstruction: Plan: Patient is a 22 yo M w/ a PMHx of left inguinal hernia and right-sided kidney stone (summer 2021) who presents today to [facility] ED after coming here from [place] with r. flank pain, hematuria, and a evidence of right-sided hydronephrosis on CT of the abdomen. Patient initially refusing procedure. Switched antibiotics to ertapenem given his lack of improvement on blod work. and concern for ESBL as per Urology. Sadly patient had already received dose of ceftriaxone for the day. Urine culture from [place] is showing E.coli On later visits patient agreeable for stent procedure. (2) Urinary tract infection: Plan: - UA: Protein, 2+; Blood, 3+; ketones, trace; RBC, 5-10; WBC, > 30 - admission serum WBC, 16; tachycardic w/ HR 117 - treatment as above. (3) MIRIAM (acute kidney injury): Plan: - pt w/ Cr, 1.67 on admission - fluids, LR, 125 mL/hr -trending upward, likely due to obstruction. Admission and Anticipated Discharge Date Admission Date: March 10, 2023 Subjective Patient reports having pain and fever. Initially patient was refusing procedure for a stent placed. Patient citing: risk of infection, hematuria, and being too young for a procedure. On subsequent visits later in the day, patient agreed/ Review of Systems Review of Systems: All systems reviewed & are unremarkable except as noted in HPI & below Physical Exam Constitutional: WD/WN, vitals as above Respiratory: normal respiratory effort, lungs clear to auscultation Cardiovascular: RRR, no murmur, no edema Gastrointestinal (Abdomen): normal bowel sounds, soft, nontender, no hepatosplenomegaly Psychiatric: A+Ox3, euthymic affect Genitourinary: + CVA tenderness Results & Data Results & Data Vital Signs (Past 12 Hours) Vital Signs Temp Pulse Pulse Pulse Resp BP Pulse Ox 03/11/23 21:25 107 H 20 107/72 93 03/11/23 21:10 36.9 C 104 H 19 122/78 94 03/11/23 20:55 37.5 C 101 H 20 108/76 96 03/11/23 20:40 106 H 20 119/79 93 03/11/23 20:30 39.4 C H 106 H 23 111/79 96 03/11/23 20:20 101 H 18 100/81 96 03/11/23 20:10 109 H 22 101/62 94 03/11/23 20:04 37.3 C 114 H 23 112/51 L 94 03/11/23 18:15 37.4 C 115 H 115 H 21 123/88 98 03/11/23 17:57 126 H 03/11/23 16:27 37.1 C 03/11/23 15:39 39.5 C H 112 H 22 147/88 H 93 03/11/23 13:49 37.1 C 03/11/23 11:00 03/11/23 10:48 37.8 C H 18 130/80 96 O2 Del Method O2 Flow Rate 03/11/23 21:25 Room Air 03/11/23 21:10 Room Air 03/11/23 20:55 Room Air 03/11/23 20:40 Room Air 03/11/23 20:30 Room Air 03/11/23 20:20 Oxymask 5 03/11/23 20:10 Oxymask 5 03/11/23 20:04 Oxymask 5 03/11/23 18:15 Room Air 03/11/23 17:57 03/11/23 16:27 03/11/23 15:39 Room Air 03/11/23 13:49 03/11/23 11:00 Room Air 0 03/11/23 10:48 Room Air 0 PG Care Time/CCT Total # of Minutes Spent Total Time Spent with Patient: Total time spent is greater than 50% in coordination of care (as documented) at patient's floor/unit and/or counseling patient: Prolonged Care Time Prolonged Care Time: Yes Total Prolonged Care Time: 65 65 from 9:00 to 9:20 11:20 to 11:30 14:20 to 14:40 17:15 to 17:30 Coding Level of Care Code 45242 SUB INP/OBS CARE 3/50MIN (25 - SIGNIFICANT, SEPARATELY IDENTIFIABLE ) Diagnoses UPJ (ureteropelvic junction) obstruction N13.5 Urinary tract infection N39.0 MIRIAM (acute kidney injury) N17.9 Additional Codes Prolonged Care Time - Prolonged Care Time: Yes ([id number]) Time Spent (min) 65
[2023-03-12] MEDS: LACTATED RINGER'S 1,000 ML IV SCH ×3 (01:12→15:42)
[2023-03-12 07:24] LABS: Basophils # (auto) 0.04 K/uL (0.00-0.20); Basophils % (auto) 0.4 %; Eosinophils # (auto) 0.01 K/uL (0.00-0.50); Eosinophils % (auto) 0.1 %; Hematocrit (blood only) 38.5 % (42.0-52.0); Hemoglobin 12.9 g/dl (14.0-18.0); Immature Granulocytes # (auto) 0.07 K/uL (0.01-0.20); Immature Granulocytes % (auto) 0.6 %; Lymphocytes % (auto) 5.3 %; Mean Corpuscular Hgb Conc 33.5 g/dL (32.0-36.0); Mean Corpuscular Volume 86.5 fL (80.0-100.0); Mean Platelet Volume 10.4 fL (9.4-12.4); Monocytes # (auto) 1.22 K/uL (0.11-0.59); Monocytes % (auto) 10.7 %; Neutrophils # (auto) 9.41 K/uL (1.40-6.50); Neutrophils % (auto) 82.9 %; Platelet Count 103 K/uL (130-400); RDW Coefficient of Variation 12.9 % (11.5-14.5); RDW Standard Deviation 40.7 fL (36.4-46.3); Red Blood Count 4.45 M/uL (4.70-6.10); White Blood Count 11.35 K/ul (4.8-10.8)
[2023-03-12 07:57] LABS: BUN Creatinine Ratio 11.1 (10-20); Calcium 8.6 mg/dl (8.6-10.3); Creatinine Clr Calc Pharmacy 71.2 ml/min; Est GFR (African American) 67.8 ml/min; Est GFR (Non-African American) 58.5 ml/min; Potassium 4.1 mmol/L (3.5-5.1)
[2023-03-12] MEDS: ACETAMINOPHEN 325 MG TAB PO PRN ×3 (09:12→20:29)
[2023-03-12] MEDS: ADVANCED PROBIOTIC 1250 MG CAPSULE PO SCH (09:13)
--- NOTE | 2023-03-12 10:18 | Urology Progress Note ---
Date of Service March 12, 2023 Assessment & Plan (1) UPJ (ureteropelvic junction) obstruction: (2) Acute UTI: (3) Diarrhea: (4) Left inguinal hernia: (5) MIRIAM (acute kidney injury): (6) Hydronephrosis: Plan POD 1 s/p Right Stent. Significant Right [place] with Pyelo and history of UPJ o Pyelo with UPJ obstruction history. Large left inguinal hernia. Diarrhea with broad spectrum Abx. 39.4 tmax post op. Since then afebrile. Vitals improving with mild tachycardia. Tolerating stent. Bother with urgency. Very minor. Pain has drastically improved. Likely some degree of diuresis after stent. Meatal narrowing s/p dilation of stricture. Plan supportive care. Likely 10-14 days Abx. Can de-esculate when cultures available from [facility]. Will likely need stent removal after completion of the abx. May continue to have fevers chills and ill feelings until fully treated. Culture from Right Kidney pending. Will plan o/p followup in approx 2-4 weeks with likely stent removal. Will need to decide on definitive treatment at some point in light of severe and poorly controlled infection with UPJo on right. Will plan follow-up as outpatient for further discussion of possible dismembered pyeloplasty or other intervention for management of chronic UPJ obstruction. Admission and Anticipated Discharge Date Admission Date: March 10, 2023 Subjective Postop from stent placement for obstruction issues. Patient has been tolerating well. Has noticed some frequency and urgency. Has not had severe pain in the back and flank. Does have occasional burning and irritation. No severe episodes or major changes. No new nausea or vomiting. Had tolerated anesthesia without major problems 39.4 temp post op. Since then afebrile. Vitals stable with mild tachycardia. Cr 1.62 Review of Systems Review of Systems: All systems reviewed & are unremarkable except as noted in HPI & below Physical Exam Physical Exam: General: Alert in no acute distress. HEENT: Normocephalic Atraumatic. Inspection normal. Cranial Nerves 2-12 Grossly intact. Normal inspection of face. Normal inspection of neck. Psychologic: Normal affect. Respiratory: Nonlabored. No use of accessory muscles. No tachypnea or dyspnea. Cardiovascular: No tachycardia Skin: [place] and Dry. No rashes or visible lesions. Extremities/Lymphatics: No edema Abdomen: Soft Non-distended. No rebound or guarding. Results & Data Vital Signs (Past 12 Hours) Vital Signs Temp Pulse Pulse Resp BP Pulse Ox O2 Del Method 03/12/23 07:28 105 H 03/12/23 07:28 37.0 C 109 H 16 134/75 95 Room Air 03/12/23 03:00 37.7 C H 105 H 18 121/74 93 Room Air 03/12/23 00:55 106 H 16 112/61 95 Room Air 03/12/23 00:00 100 H 16 113/75 93 Room Air 03/11/23 23:00 104 H 03/11/23 23:00 37.1 C 98 H 24 112/61 92 Room Air 03/11/23 22:30 104 H 18 129/76 94 Room Air PG Care Time/CCT Total # of Minutes Spent Total Time Spent with Patient: Total time spent is greater than 50% in coordination of care (as documented) at patient's floor/unit and/or counseling patient: Coding Level of Care Code 07927 SUB INP/OBS CARE 3/50MIN Diagnoses UPJ (ureteropelvic junction) obstruction N13.5 Acute UTI N39.0 Diarrhea R19.7 Left inguinal hernia K40.90 MIRIAM (acute kidney injury) N17.9 Hydronephrosis N13.1 Hydronephrosis type: with other ureteral stricture (6) Hydronephrosis Hydronephrosis type: with other ureteral stricture Qualified Code(s): N13.1 - Hydronephrosis with ureteral stricture, not elsewhere classified
[2023-03-12] MEDS: CIPROFLOXACIN 500 MG TAB PO SCH (18:04)
--- NOTE | 2023-03-12 21:22 | Hospitalist Progress Note ---
Date of Service March 12, 2023 Assessment & Plan (1) UPJ (ureteropelvic junction) obstruction: Plan: Patient is a 22 yo M w/ a PMHx of left inguinal hernia and right-sided kidney stone (summer 2021) who presents today to [facility] ED after coming here from [place] with r. flank pain, hematuria, and a evidence of right-sided hydronephrosis on CT of the abdomen. S/p ureteral stent. Culture from [place] showed pansentivie E.coli Patient will be treated with PO antibiotics. Starting tonight. (2) Urinary tract infection: Plan: - UA: Protein, 2+; Blood, 3+; ketones, trace; RBC, 5-10; WBC, > 30 - admission serum WBC, 16; tachycardic w/ HR 117 - treatment as above. HR and WBC showing improvement. (3) MIRIAM (acute kidney injury): Plan: - pt w/ Cr, 1.67 on admission - fluids, LR, 125 mL/hr -trending upward, likely due to obstruction. shwoing improvement. continue IVF. Admission and Anticipated Discharge Date Admission Date: March 10, 2023 Subjective Patient reports feeling much better. Review of Systems Review of Systems: All systems reviewed & are unremarkable except as noted in HPI & below Physical Exam Constitutional: WD/WN, vitals as above Respiratory: normal respiratory effort, lungs clear to auscultation Cardiovascular: RRR, no murmur, no edema Gastrointestinal (Abdomen): normal bowel sounds, soft, nontender, no hepatosplenomegaly Psychiatric: A+Ox3, euthymic affect Genitourinary: + CVA tenderness Results & Data Results & Data Vital Signs (Past 12 Hours) Vital Signs Temp Pulse Resp BP Pulse Ox O2 Del Method 03/12/23 19:23 37 C 100 H 18 128/73 97 Room Air 03/12/23 15:52 37.6 C H 105 H 18 135/75 94 Room Air 03/12/23 10:49 37.0 C 100 H 16 118/72 94 Room Air PG Care Time/CCT Total # of Minutes Spent Total Time Spent with Patient: Total time spent is greater than 50% in coordination of care (as documented) at patient's floor/unit and/or counseling patient: Coding Level of Care Code 35905 SUB INP/OBS CARE 3/50MIN Diagnoses UPJ (ureteropelvic junction) obstruction N13.5 Urinary tract infection N39.0 MIRIAM (acute kidney injury) N17.9
[2023-03-13] MEDS: LACTATED RINGER'S 1,000 ML IV SCH ×2 (00:11→08:04)
[2023-03-13] MEDS: ACETAMINOPHEN 325 MG TAB PO PRN (06:08)
[2023-03-13] MEDS: CIPROFLOXACIN 500 MG TAB PO SCH (06:09)
[2023-03-13 06:35] LABS: Basophils # (auto) 0.03 K/uL (0.00-0.20); Basophils % (auto) 0.3 %; Eosinophils # (auto) 0.08 K/uL (0.00-0.50); Eosinophils % (auto) 0.8 %; Hematocrit (blood only) 37.7 % (42.0-52.0); Hemoglobin 12.7 g/dl (14.0-18.0); Immature Granulocytes # (auto) 0.08 K/uL (0.01-0.20); Immature Granulocytes % (auto) 0.8 %; Lymphocytes # (auto) 0.89 K/uL (1.20-3.40); Lymphocytes % (auto) 8.5 %; Mean Corpuscular Hemoglobin 28.7 pg (25.0-34.0); Mean Corpuscular Hgb Conc 33.7 g/dL (32.0-36.0); Mean Corpuscular Volume 85.3 fL (80.0-100.0); Mean Platelet Volume 10.4 fL (9.4-12.4); Monocytes # (auto) 1.56 K/uL (0.11-0.59); Monocytes % (auto) 14.9 %; Neutrophils # (auto) 7.81 K/uL (1.40-6.50); Neutrophils % (auto) 74.7 %; Platelet Count 134 K/uL (130-400); RDW Coefficient of Variation 12.7 % (11.5-14.5); RDW Standard Deviation 39.6 fL (36.4-46.3); Red Blood Count 4.42 M/uL (4.70-6.10); White Blood Count 10.45 K/ul (4.8-10.8)
[2023-03-13] MEDS: ADVANCED PROBIOTIC 1250 MG CAPSULE PO SCH (08:04)
[2023-03-13 08:30] LABS: Calcium 9.4 mg/dl (8.6-10.3); Potassium 4.2 mmol/L (3.5-5.1)
[2023-03-13 08:35] LABS: Est GFR (African American) 84.6 ml/min
[2023-03-13 08:36] LABS: BUN Creatinine Ratio 11.9 (10-20); Creatinine Clr Calc Pharmacy 78.9 ml/min
--- NOTE | 2023-03-13 11:21 | Discharge Summary ---
Date of Service March 13, 2023 Admission HPI Per Admitting Provider The patient is a 22-year-old male who presents to the ED with right flank pain that began this morning. The patient did notice some blood in the urine and some burning with urination. He felt some nausea, but did not vomit. the patient has felt feverish, but did not take his temp. The patient went to the [place] ED, he was found to have a severe hydronephrosis on the right secondary to UPJ obstruction. This was diagnosed by CT imaging. Urology was not available at [place]. Patient was to be a direct admit to our hospital however, there were no beds available. He was sent to our ER for evaluation. Gaston pimentel had a CT-abdomen done while at [place], had the file on a CD-ROM, gave it to the urologist who uploaded it to Pt has no family hx of kidney stones or UPJ obstruction that he is aware of, th ough he does not have relationship w/ biological father. The patient has a personal medical history of right UPJ obstruction. Patient had previously had UPJ obstruction in summer, which he went to ED for, pt took pain and other meds and it resolved a few days after getting d/c'ed. They talked about putting in stent but pt was working in [place] at time, was returning to [place] and could not schedule that surg in [place]. Principal Diagnosis UPJ obstruction Discharge Exam Constitutional WD/WN, vitals as above Respiratory normal respiratory effort, lungs clear to auscultation Cardiovascular RRR, no murmur, no edema Gastrointestinal (Abdomen) normal bowel sounds, soft, nontender, no hepatosplenomegaly Psychiatric A+Ox3, euthymic affect Genitourinary + CVA tenderness Discharge Data Allergies Allergy/AdvReac Type Severity Reaction Status Date / Time pineapple Allergy Intermediate Redness of Verified 03/10/23 21:30 Skin-with pineapple juice Consultations 03/10/23 16:47 ED Decision to Admit Stat 03/10/23 18:45 Consult Urology Routine Procedures Performed Operation Date: 03/11/23 19:00 Actual Procedures p Cystoscopy, Right Stent Placement, Urethral Dilation, Right Aspiration, and Right Retrograde Pyelogram.(Right) - Arthur Hardin, DO Ordered Studies 03/11/23 [place] retrograde includes kub Routine Hospital Course (1) UPJ (ureteropelvic junction) obstruction: possible early Sepsis, POA Patient is a 22 yo M w/ a PMHx of left inguinal hernia and right-sided kidney stone (summer 2021) who presents today to [facility] ED after coming here from [place] with r. flank pain, hematuria, and a evidence of right-sided hydronephrosis on CT of the abdomen. S/p ureteral stent. Culture from [place] showed pansentivie E.coli Patient will be treated with PO antibiotics, will be discharged on 7 additional days of ciprofloxacin. This will be a total of about 10 days. HR improved to 80s, WBC< and creatinine normalized. Patient also reports less diarrhea (2) Urinary tract infection: - UA: Protein, 2+; Blood, 3+; ketones, trace; RBC, 5-10; WBC, > 30 - admission serum WBC, 16; tachycardic w/ HR 117 - treatment as above. HR and WBC showing improvement. (3) MIRIAM (acute kidney injury): - pt w/ Cr, 1.67 on admission - fluids, LR, 125 mL/hr -trending upward, likely due to obstruction. resolved Total Time Total Time Spent Total Time Spent (In Minutes): 32 Discharge Plan Discharge Items Patient Disposition: Home - Self-Care Reason For Visit: R. SIDED FLANK PAIN, HEMATURIA Discharge Diagnosis: r sided UTI Condition on Discharge: Fair Activity: Resume your previous activity Non-emergency contact: Primary Care Provider Call non-emergency contact if: you have any medication questions Follow-up/Referrals: Felisa Meza CRNP [Primary Care Provider] - Diet: Regular Addtl Attending Provider Instructions: Please continue antibiotics for 7 more days. Take next dose tonight. Urology will schedule a followup with you within the month. Please followup with PCP in 1-2 weeks. Pending Studies at Discharge: No Stand-Alone Forms: My [employer], Work/School Release, Smoking Cessation Medications and DC Order Prescriptions: New acetaminophen 325 mg Tablet 650 mg PO Q4H PRN (Reason: pain) Qty: 30 0RF ciprofloxacin HCl 500 mg Tablet 500 mg PO BID@0700,1900 Qty: 14 0RF Advanced Probiotic 625 mg (10 billion cell) Capsule 2 cap PO DAILY Qty: 14 0RF Discharge Orders: Discharge Order (Routine); Ordered 03/13/23 Ordered By: Morris Puentes Admission Data Admit Date/Time: 03/10/23 19:20 Attending Provider: Morris Puentes Admit Provider: Rylan Simental Primary Care Provider: Felisa Meza Other Providers: Kwesi Simon; Edison Acosta; Calvin Gaviria; Rylan Benoit; Jenny Lemon; Arthur Hardin; Madison German; Gisela Sanford; Gregory Reed; Debbie De Paz; Raftia Martin; Cecil Gross Other Interventions: Discharge Summary Assessment (RN) Last Done: 03/13/23 12:09 Coding Level of Care Code 70401 INP/OBS DISCH >30 MIN Diagnoses UPJ (ureteropelvic junction) obstruction N13.5 Urinary tract infection N39.0 MIRIAM (acute kidney injury) N17.9
== END 2023-03-13 12:28 | disposition home or self-care (01) | DRG 854 ==
LOC: SUATTDRO → ED 14:38 → SUATTDRO 19:20 → 3N 19:20 → 2E 03-11 10:52

== ENCOUNTER 2023-06-09 06:05 | Observation (INO) ==
--- NOTE | 2023-06-06 13:57 | Anesthesiology Consultation ---
Date of Service June 06, 2023 Assessment & Plan (1) Encounter for pre-operative examination: Chart Review Chart Review: Acceptable Risk for Surgery and Patient NOT seen in Pre Admission Testing -Infectious Disease screening: Per PAT nursing assessment on 06/06/23. No known infectious disease contacts in past 10 days or current infectious disease symptoms. No recent travel outside the country. History Surgery Operation Date: 06/09/23 07:30 Proposed Procedures p Dismembered Laparoscopic Robotic Assisted Pyeloplasty - Arthur Hardin, DO Height/Weight Height: 5 ft 7 in Weight: 77.111 kg Allergies Allergy/AdvReac Type Severity Reaction Status Date / Time pineapple Allergy Unknown Redness of Verified 05/12/23 15:16 Skin-with pineapple juice Medications Home Medications Medication Instructions Recorded Confirmed Last Taken acetaminophen 325 mg tablet 650 mg PO UD PRN pain 05/12/23 06/06/23 Unknown Past Medical History Medical History (Updated 06/06/23 @ 14:21 by Nandini Varela PA-C) Bladder infection - abx finished 05/06/23 - negative urine culture 05/25/23 Incarcerated left inguinal hernia Initially was to have hernia repair 05/25/23 (cancelled due to medical reasons- presume ongoing kidney issues) UPJ (ureteropelvic junction) obstruction - hx hospitalization [facility] 02/2023. Nuclear scan for kidney 05/19/23. - per workload messages- patient with ongoing flank pain- reason for upcoming procedure Past Surgical History Surgical History History of urologic surgery stent Feb 2023 and since removed Mar 2023. Social History Smoking Status: Former smoker Do You Dip or Chew Tobacco: No Smoking End Date: 4 years ago Hx Alcohol Use: Yes Alcohol type: beer and hard liquor alcohol intake frequency: a few times a month Hx Substance Use: No substance use type: does not use Lab Results Anesthesia Preop Results Results Anesthesia Widget: WBC 5.74 K/ul (4.8-10.8) 05/25/23 Hgb 15.8 g/dl (14.0-18.0) 05/25/23 Hct 46.4 % (42.0-52.0) 05/25/23 Plt 200 K/uL (130-400) 05/25/23 Na 139 mmol/L (136-145) 05/25/23 K 4.1 mmol/L (3.5-5.1) 05/25/23 Cl 104 mmol/L (98-107) 05/25/23 CO2 31 mmol/L (21-32) 05/25/23 BUN 19 mg/dl (6-23) 05/25/23 Creat 1.36 mg/dl (0.6-1.4) 05/25/23 Glucose Level 88 mg/dl (70-99(Fasting)) 05/25/23 Testing Laboratory Results 05/25/23= URINE CULTURE: No grwoth- less than 1000 colonies/mL Other Testing Renal scan 05/19/2023 = Findings compatible with UPJ obstruction of the right kidney with persistent hydronephrosis and decreased renal function. Split function of 69.7% on the left and 30.3% on the right.
[2023-06-09] MEDS: LR 15ML/HR IV SCH (06:35)
--- NOTE | 2023-06-09 06:52 | History & Physical Report ---
Date of Service June 09, 2023 Assessment & Plan (1) UPJ (ureteropelvic junction) obstruction: (2) Hydronephrosis: (3) Left inguinal hernia: (4) Acute right flank pain: Plan Risks and benefits discussed at length for procedure. These include bleeding, infection, injury to surrounding tissues or organs, and risks associated with anesthesia. Patient states understanding and agrees to proceed. Will sign consent and proceed. Plan for Robotic assisted laparoscopic right pyeloplasty. History of Present Illness Primary Care Provider: EDIN Webber Patient here for procedure. No changes in medical issues. No major changes in urinary issues. Continued issues and concerns. No change in pain or discomfort. No severe fevers or chills. No chest pain or shortness of breath. Risks and benefits discussed at length for procedure. These include bleeding, infection, injury to surrounding tissues or organs, and risks associated with anesthesia. Patient and/or family states understanding and agrees to proceed. Consent and supporting information completed. Allergies Allergy/AdvReac Type Severity Reaction Status Date / Time pineapple Allergy Unknown Redness of Verified 06/09/23 06:18 Skin-with pineapple juice Home Medications Medication Instructions Recorded Confirmed Type acetaminophen 325 mg tablet 650 mg PO UD PRN pain 05/12/23 06/06/23 History Past Med/Surg History Medical History (Updated 06/09/23 @ 06:51 by Arthur Hardin DO) Bladder infection - abx finished 05/06/23 - negative urine culture 05/25/23 Incarcerated left inguinal hernia Initially was to have hernia repair 05/25/23 (cancelled due to medical reasons- presume ongoing kidney issues) UPJ (ureteropelvic junction) obstruction - hx hospitalization [facility] 02/2023. Nuclear scan for kidney 05/19/23. - per workload messages- patient with ongoing flank pain- reason for upcoming procedure Surgical History History of urologic surgery stent Feb 2023 and since removed Mar 2023. Social History Smoking Status: Former smoker Tobacco Type: Cigarettes Smoking End Date: 4 years ago; Do You Dip or Chew Tobacco: No; Hx Alcohol Use: Yes Alcohol type: beer and hard liquor Hx Substance Use: No Preferred Language: [place] Communication Ability: Effective Visual Impairment: No Limitations Surg Physician Asst Required: No Beliefs That Will Affect Care: None marital status: Single Current Living Situation: Family Current Living Situation Comment: mom, stepfather and sister current occupational status: employed How many Children do You have: 0 Feels Safe at Home: Yes Safety Concerns: Feels Safe At This Time Assistive Devices: None Review of Systems All systems reviewed & are unremarkable except as noted in HPI & below Physical Exam Physical Exam: General: Alert/Arousable. No Acute illness. . HEENT: Inspection normal. Normal inspection of face. Normal inspection of neck. Psychologic: Normal affect/No change in mentation. Respiratory: No use of accessory muscles. No respiratory changes or exacerbation or changes with tachypnea or dyspnea. Cardiovascular: No tachycardia Skin: [place] and Dry. No new rashes or visible lesions. Abdomen: Normal inspection. No guarding. Results & Data Vital Signs (Past 12 Hours) Vital Signs Temp Pulse Resp BP Pulse Ox O2 Del Method 06/09/23 06:22 36.7 C 79 16 131/74 99 Room Air PG Care Time/CCT Total # of Minutes Spent Total Time Spent with Patient: Total time spent is greater than 50% in coordination of care (as documented) at patient's floor/unit and/or counseling patient: Coding Level of Care Code None Diagnoses UPJ (ureteropelvic junction) obstruction N13.5 Hydronephrosis N13.1 Hydronephrosis type: with other ureteral stricture Left inguinal hernia K40.90 Acute right flank pain R10.9 (2) Hydronephrosis Hydronephrosis type: with other ureteral stricture Qualified Code(s): N13.1 - Hydronephrosis with ureteral stricture, not elsewhere classified
[2023-06-09] MEDS ORDERED: ePHEDrine sulfate 50 MG/ML AMP IV PRN (07:02)
[2023-06-09] MEDS ORDERED: fentaNYL citrate PF 100 MCG/2 ML VIAL IV PRN (07:02)
[2023-06-09] MEDS ORDERED: ATROPINE SULFATE 0.1 MG/ML 10ML SYR IV PRN (07:02)
[2023-06-09] MEDS ORDERED: ONDANSETRON INJ 2 MG/ML 2 ML VIAL IV PRN ×2 (07:02→12:37)
[2023-06-09] MEDS ORDERED: DexMEDEtomidine HCL IV 100 MCG/ML VIAL IV ONE (07:11)
[2023-06-09] MEDS ORDERED: KETAMINE HCL 10MG/ML SYR ONE (07:11)
[2023-06-09] MEDS ORDERED: MIDAZOLAM HCL 1 MG/ML 2ML VIAL ONE (07:19)
[2023-06-09] MEDS ORDERED: fentaNYL citrate PF 100 MCG/2 ML VIAL ONE ×2 (07:19→11:00)
[2023-06-09] MEDS: ceFAZolin 2000MG 2,000 MG/15 ML SYR IV SCH ×2 (07:36→15:48)
[2023-06-09] MEDS ORDERED: DEXAMETHASONE SOD INJ 4 MG/ML VIAL ONE (08:19)
[2023-06-09] MEDS ORDERED: LIDOCAINE 2% 2 ML VIAL/AMP(20MG/ML) INFIL ONE (08:19)
[2023-06-09] MEDS ORDERED: PROPOFOL IV EMULSION 10 MG/ML 20 ML VIAL IV ONE (08:19)
[2023-06-09] MEDS ORDERED: ONDANSETRON INJ 2 MG/ML 2 ML VIAL ONE (08:19)
[2023-06-09] MEDS ORDERED: KETOROLAC 30 MG/ML VIAL ONE (08:47)
[2023-06-09] MEDS: BUPIVACAINE 0.5 % 5 MG/1 ML MPF 30ML VIAL ONE (10:45)
[2023-06-09] MEDS ORDERED: SUGAMMADEX SODIUM 200 MG/2 ML VIAL IV ONE (10:52)
--- NOTE | 2023-06-09 11:15 | Operative Report ---
PG Post Operative Report Pre & Post Diagnosis Operation Date: 06/09/23 07:30 Pre-Op Diagnosis: Hydronephrosis, MIRIAM (Acute Kidney Injury), Acute R Post-Op Diagnosis: Hydronephrosis, MIRIAM (Acute Kidney Injury), Acute R I identified the patient and participated in the time-out.: Yes Procedure Operation Date: 06/09/23 07:30 Actual Procedures p Robotic Assisted Laparoscopic Dismemebered Pyeloplasty(Right) - Arthur Hardin DO Surgeon Arthur Hardin, II, DO Eye [facility] Manager EDIN German Estimated Blood Loss 30 Findings Consistent with Post-Op Diagnosis Appendix was discovered retroperitoneal/retrocecal but was able to be identified immediately and avoided during the dissection. 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 More medial and posterior ureter appeared to be going towards the upper pole and did not appear to be affected by the lower pole crossing vessels. Significant UPJ obstruction secondary to crossing vessels of the lower pole ureter causing severe hydronephrosis of the majority of the lower pole and midpole renal pelvis/kidney Specimens Right lower/mid pole UPJ Drains 7 Fr flat drain 16 Fr Capps Anesthesia Type General Complications none Disposition Disposition: Recovery Room Indications Patient with significant UPJ obstruction and decreased function and flow on renal Lasix scan with severe dilation of the system. Patient with recurrent episodes of pyelonephritis. Risks and benefits discussed at length. Description of Procedure The patient was brought to the operative suite and placed under general endotracheal intubation anesthesia in the supine position. The patient was transferred to lateral position with the right flank exposed. The patient was placed into a flex'ed position and then placed into mild reverse Trendelenberg. At this point, the patient prepped and draped in the usual sterile fashion and a timeout was completed. Preoperative weight based antibiotics had been given. MARV's and SCD's were placed on the patient's lower extremities. A catheter was placed by nursing using sterile technique. With the time out completed the patient was flexed and the skin was marked. The lateral port site was anesthetized. A small incision was made into the skin and subcutaneous tissues. A Varess needle was selected and placed. The needle was easily moved and it was irrigated and aspirated without any issues or concerns for placement. Insufflation commenced. Once insufflated, the lateral edge of the rectus sheath was marked and anesthetized. The skin was incised and a camera port was placed. The cavity was insufflated to 15 mmHG. The laparoscopic camera was placed and the abdominal cavity inspected. No concerning features were noted. At this point, the skin was marked for port placement and 8mm working ports were placed. The skin was anesthetized down to fascia and an approx 1cm incision was made to place the 2 x 8mm ports. A 5 mm assistant to the director port was also placed in similar fashion under direct visualization. The robot was positioned and docked. The camera was placed and all trocars were positioned under direct visualization. Madison German was integral in port placement, camera utilization, and docking procedure. She remained in sterile attire and then proceeded to assist the remainder of the case. The colon was mobilized medially to expose the retroperitoneum and the area assessed. The appendix was noted to be retrocecal/within the retroperitoneum. Care was taken to avoid the appendix itself and it was able to be freed and retracted without major issue. The line of Toldt was then open and carried up towards the liver. Adhesions were freed to allow mobilization. A small amount of adhesions were noted from the colon and were freed. These were dissected with blunt technique. Very minimal cautery was used to assist dissection and control bleeding. The retroperitoneal fat was assessed. The renal pelvis was found to be significantly dilated and hydronephrotic. It was seen bulging from the retroperitoneum. With the colon fully retracted the retroperitoneal fat was assessed. Immediately the gonadal vein was identified followed by 2 peristalsing ureters within the retroperitoneum. This was first dissected inferiorly to see if there was a junction of these 2 ureteral segments. This was taken down to the crossing of the iliacs. Past the crossing of the iliacs the ureters were able to be identified coursing through the retroperitoneum and appeared to enter down towards the bladder still as separate ureters. The patient appeared to have likely a near complete versus complete duplication with possible joining near the location at the insertion of the bladder. Near the insertion of the gonadal vein into the IVC the ureters were better able to be identified by either location. The more posterior and lateral of the ureters appear to be going to up towards the upper pole remaining posterior to the other ureter. Neither ureter appeared to have significant hydronephrosis or hydroureter. Dissection was then taken up towards the hydronephrotic area. Care was taken throughout the dissection to avoid significant manipulation or damage to the ureter or the surrounding support structures. Care was taken to dissect down near the IVC. This was then followed superiorly. Dissection stayed toward the ureter with minimal retraction and manipulation of the ureter while dissecting along the IVC and the psoas muscle. The dissection was followed to the renal pelvis. A small yet significant pair of renal vessels were identified. The accessory renal Vein was identified and exposed. Further dissection then allowed dissection of likely an accessory renal artery. These appear to coursed towards the lower pole segment of the kidney. These vessels appear to cause the UPJ obstruction and were acting as significant crossing vessels. The more anterior/medial of the ureter was significantly impacted by the location of the vessels. The more posterior and lateral of the ureters appeared not to be affected at all and this was able to be dissected up behind the kidney coursing towards likely the upper pole with no major impact or problems. Attention was then taken to dissecting free the more anterior/medial ureter. This was dissected up to the crossing vessels. Above the crossing vessels the renal pelvis and ureter were further dissected. There was a significant kinking and turning of the ureter due to the crossing vessels with severe hydronephrosis noted directly above. Dissection was taken further superior. The renal pelvis was further freed and mobilized. The main renal vein was able to be identified above the hydronephrotic segment. No major issues or concerns. Dissection was then taken more posteriorly. Care was taken to monitor the more lateral of the ureters throughout the dissection process. No major issues were noted. Once the renal pelvis and the ureter were better freed and the crossing vessels were cleared of any attachments. Attention was then taken to the insertion of the ureter at the renal pelvis. There was significant edematous changes around the hydronephrotic renal pelvis. The area was copiously irrigated. The area was inspected a final time before entering into the renal pelvis. At this point the scissors were used to enter the renal pelvis a yady-shaped configuration was able to be excised in the renal pelvis to dismember the ureter. The ureter was then able to be transposed and moved to the anterior position in front of the crossing vessels. The area was inspected. Urine was irrigated clear and the dissection space as well as renal pelvis were gently irrigated using saline. The fluid was able to be suctioned clear without major issue. No major bleeding was noted. The inspection of the area showed no major signs of issues or problems. The renal pelvis portion was dilated but did not appear to have any major areas of concern or lesion or significant obstruction. Attention was then taken to the proximal ureteral segment. A Gerber scissors was placed with the robot and the lateral aspect of the ureter was incised to spatulate a segment of the ureter. Spatulation continued inferiorly to allow a good segment for repair and also to allow the removal of the likely diseased segment that had been obstructed due to the crossing vessels. The ureteral segment was then probed and found to be patent without major issue or problems. At this point attention was taken to the pyeloplasty portion. A 4-0 Monocryl suture was utilized to place the lateral apex stitch. Once this stitch was placed the suture was ran continuously along the posterior edge to reapproximate the ureteral segment to the renal pelvis. Once the first two thirds of the posterior edge were reapproximated utilizing mucosal to mucosal reapproximation attention was then taken back to the lateral apex and an additional 4-0 Monocryl suture was used in a running fashion to begin closing the anterior edge. A 5 Sinhala open-ended catheter was then placed into the ureteral segment and advanced down to 25 cm into the bladder. A sensor wire was then placed into the catheter and advanced into the bladder. The catheter was removed and a 6 x 28 double-J ureteral stent was placed over the wire into the bladder. The wire was then removed and the proximal coil was positioned in the renal pelvis without major issues or problems. No issues or problems with passing of the stent. The stent did appear to fit into good position. At this point the disease section of the ureter where is able to be completely excised and sent for pathological analysis. The edges appear to be free from any major bleeding or areas of concern. The posterior and anterior 4-0 Monocryl sutures were then used to close the remainder of the pyeloplasty in a running fashion. Mucosal mucosal reapproximation was completed. The entire area was inspected. No major signs of issues or concerns. No signs of leak or other problem. The insufflation pressure was decreased to 10 mmHg and the entire area was inspected. No major bleeding leak or other problems were noted. The area was copiously irrigated. No problems or concerns. Attention was then taken to the remainder of the retroperitoneum and the sidewall. No major issues or problems were discovered. The ureters appeared peristalsing without major issue. The Crossing accessory vessels of the lower pole did not appear to be impacting the more lateral/posterior ureter going up towards likely the upper pole. It was decided to not manipulate this ureter any further. A 3-0 V-Loc suture was then used to reapproximate the peritoneal tissue over the retroperitoneum care was taken to monitor the position of the appendix which had been previously located within the retroperitoneum. The space was able to be closed without major issue in a running fashion. Hemostatic agents Tisseel and Floseal were also placed in the paracolic gutter. No major bleeding or other issues. A Flat drain was placed through the inferior robot arm and the port was removed. It was positioned in the gutter lateral to the liver and colon. This was secured with a nylon 1-0 suture. The entire dissection space was inspected one final time. No bleeding or injuries or areas of concern were noted. No tumor or other concerning features were noted. The kidney appeared to be without injury or area of concern. At this point, the robot was undocked and moved away from the patient. The port sites were all assessed laparoscopically. The other ports were assessed and no issues observed. The port were then able to be removed after draining of the insufflated carbon dioxide.. The skin at each site was closed with a 4-0 Monocryl suture in a running fashion. The area was cleaned and glue was placed on each incision. The patient was cleaned and bandaged. He was moved back into the supine position The patient was cleaned, aroused from anesthesia, and transferred to the pacu in stable condition having tolerated the procedure well with no complications. I was present and participated in all aspects of the procedure. EDIN Castillo was critical in the portions as mentioned above. A KUB will be ordered in the PACU to confirm the placement of the stent. Patient will be admitted to monitor. Will likely follow-up in approximately 4 weeks for stent removal. Will attempt catheter removal in the morning and likely drain removal in the afternoon if no major increase in output. I attest to the content of the Intraoperative Record and any orders documented therein. Any exceptions are noted below.
--- NOTE | 2023-06-09 12:04 | XRay Report ---
KUB HISTORY: Follow-up study in a patient with a right ureteral stent Check right ureteral stent placeme nt COMPARISON: 03/10/2023 FINDINGS: Nonobstructive bowel gas pattern. Renal shadows are partially obscured by bowel gas. A radi opaque sponge projects over the right lateral abdomen. A right ureteral stent appears to be in satis factory positioning. Renal shadows are obscured by bowel gas. No definite ureteral calculi identified . No pneumoperitoneum or pneumatosis. No fracture. IMPRESSION: Satisfactory positioning of the right ureteral stent. ACT 112: Negative or not required by law. The above report was generated using voice recognition software. It may contain grammatical, syntax o r spelling errors. Electronically signed by: Enrique Chandler M.D. 06/09/2023 12:02 PM
--- NOTE | 2023-06-09 12:13 | Anesthesiology Progress Note ---
Date of Service June 09, 2023 Anesthesia Post Procedure Vital Signs Vital Signs: Temp Pulse Pulse Resp BP Pulse Ox O2 Del Method 06/09/23 12:00 81 16 112/66 97 Room Air 06/09/23 11:50 75 16 115/64 98 Room Air 06/09/23 11:40 88 16 124/63 97 Room Air 06/09/23 11:30 91 H 16 118/79 99 Oxymask 06/09/23 11:22 97.2 F L 96 H 16 118/82 100 Oxymask 06/09/23 06:22 98.1 F 79 16 131/74 99 Room Air O2 Flow Rate 06/09/23 12:00 0 06/09/23 11:50 0 06/09/23 11:40 0 06/09/23 11:30 2 06/09/23 11:22 8 06/09/23 06:22 Transfer of Care Handoff Completed per policy Notes Mental Status: alert / awake / arousable and participated in evaluation Patient Amnestic to Procedure: Yes Nausea / Vomiting: adequately controlled Pain: adequately controlled Airway Patency, RR, SpO2: stable & adequate BP & HR: stable & adequate Hydration State: stable & adequate Anesthetic Complications: no major complications apparent and Pt Satisfied with anesthetic care
[2023-06-09] MEDS ORDERED: MoRPHine SULFATE 4 MG/ML 1 ML CARP\\VIAL IV PRN (12:37)
[2023-06-09] MEDS ORDERED: MoRPHine SULFATE 2 MG/ML CARP IV PRN (12:37)
[2023-06-09] MEDS ORDERED: oxyCODONE HCL IR 5 MG TAB (IMMEDIATE RELEASE) PO PRN (12:37)
[2023-06-09] MEDS: LACTATED RINGER'S 1,000 ML IV SCH (13:03)
[2023-06-09] MEDS: ACETAMINOPHEN 325 MG TAB PO SCH (13:03)
[2023-06-09 13:47] LABS: Hematocrit (blood only) 41.7 % (42.0-52.0); Hemoglobin 14.3 g/dl (14.0-18.0); Mean Corpuscular Hemoglobin 29.2 pg (25.0-34.0); Mean Corpuscular Hgb Conc 34.3 g/dL (32.0-36.0); Mean Corpuscular Volume 85.1 fL (80.0-100.0); Mean Platelet Volume 10.5 fL (9.4-12.4); Platelet Count 177 K/uL (130-400); RDW Coefficient of Variation 13.1 % (11.5-14.5); RDW Standard Deviation 40.5 fL (36.4-46.3); White Blood Count 11.11 K/ul (4.8-10.8)
[2023-06-09 14:12] LABS: Basophils # (auto) 0.02 K/uL (0.00-0.20); Basophils % (auto) 0.2 %; Eosinophils # (auto) 0.01 K/uL (0.00-0.50); Eosinophils % (auto) 0.1 %; Immature Granulocytes # (auto) 0.06 K/uL (0.01-0.20); Immature Granulocytes % (auto) 0.5 %; Lymphocytes # (auto) 0.65 K/uL (1.20-3.40); Lymphocytes % (auto) 5.9 %; Monocytes # (auto) 0.24 K/uL (0.11-0.59); Monocytes % (auto) 2.2 %; Neutrophils # (auto) 10.13 K/uL (1.40-6.50); Neutrophils % (auto) 91.1 %
[2023-06-09 14:43] LABS: Calcium 9.2 mg/dl (8.6-10.3); Potassium 4.1 mmol/L (3.5-5.1)
[2023-06-09 14:49] LABS: BUN Creatinine Ratio 14.1 (10-20); Creatinine Clr Calc Pharmacy 74.1 ml/min; Est GFR (Non-African American) 61.3 ml/min
[2023-06-09] MEDS: DOCUSATE SODIUM 100 MG CAP PO SCH (20:50)
[2023-06-10 06:11] LABS: Basophils # (auto) 0.02 K/uL (0.00-0.20); Basophils % (auto) 0.2 %; Eosinophils # (auto) 0.02 K/uL (0.00-0.50); Eosinophils % (auto) 0.2 %; Hematocrit (blood only) 39.5 % (42.0-52.0); Hemoglobin 13.1 g/dl (14.0-18.0); Immature Granulocytes # (auto) 0.04 K/uL (0.01-0.20); Immature Granulocytes % (auto) 0.4 %; Lymphocytes # (auto) 2.14 K/uL (1.20-3.40); Lymphocytes % (auto) 22.1 %; Mean Corpuscular Hemoglobin 28.9 pg (25.0-34.0); Mean Corpuscular Hgb Conc 33.2 g/dL (32.0-36.0); Mean Corpuscular Volume 87.2 fL (80.0-100.0); Mean Platelet Volume 9.9 fL (9.4-12.4); Monocytes # (auto) 0.98 K/uL (0.11-0.59); Monocytes % (auto) 10.1 %; Platelet Count 163 K/uL (130-400); RDW Coefficient of Variation 13.4 % (11.5-14.5); RDW Standard Deviation 42.5 fL (36.4-46.3); Red Blood Count 4.53 M/uL (4.70-6.10)
--- NOTE | 2023-06-10 06:22 | Electrocardiogram Report ---
Test Reason : Blood Pressure : / mmHG Vent. Rate : 073 BPM Atrial Rate : 073 BPM P-R Int : 138 ms QRS Dur : 092 ms QT Int : 386 ms P-R-T Axes : 047 008 032 degrees QTc Int : 425 ms Normal sinus rhythm with sinus arrhythmia Normal ECG No previous ECGs available Confirmed by Deandre Jordan ([id number]) on 06/10/2023 6:21:43 AM Referred By: Arthur Hardin Confirmed By:Deandre Jordan
[2023-06-10 06:25] LABS: Calcium 8.9 mg/dl (8.6-10.3); Creatinine Clr Calc Pharmacy 79.2 ml/min; Est GFR (African American) 76.9 ml/min; Est GFR (Non-African American) 66.4 ml/min; Potassium 4.2 mmol/L (3.5-5.1)
--- NOTE | 2023-06-10 08:22 | Urology Progress Note ---
Date of Service June 10, 2023 Assessment & Plan (1) Hydronephrosis: (2) UPJ (ureteropelvic junction) obstruction: Plan: 22 yo/M POD #1 s/p Robotic Assisted Laparoscopic Dismemebered Pyeloplasty (right) with Dr. Hardin Patient afebrile with stable vitals Labscreatinine 1.46, WBC 9.7, hemoglobin 13.1 Post op KUB with stent in good position Subjectively doing well Minimal pain, adequately controlled with scheduled Tylenol Capps patent and draining clear pink tinged urine Remove Capsp catheter this am Tolerating clear liquid diet--will advance diet for breakfast and dc IV fluids Incisions appropriate RED drain with minimal output--plan to remove drain prior to discharge Ambulate this morning Anticipate discharge to home later today presuming he continues to progress as expected Admission and Anticipated Discharge Date Admission Date: June 09, 2023 Subjective Patient awake and resting in bed, no apparent distress No acute issues overnight Denies pain On scheduled Tylenol, did not require any additional pain medication overnight Capps patent and draining clear pink-tinged urine Tolerating clear liquid diet, would like regular diet Denies nausea/vomiting No fever or chills Review of Systems Constitutional: as per Subjective / HPI Gastrointestinal: as per Subjective / HPI Genitourinary: + as per Subjective / HPI Physical Exam Constitutional: well developed and well nourished; no acute distress Respiratory: normal respiratory effort; no respiratory distress and no labored breathing Gastrointestinal (Abdomen): Inspection/Auscultation: abdomen normal to inspection Percussion/Palpation: abdomen soft; abdomen nontender Musculoskeletal: Head/Neck/Chest: normocephalic Skin: Incisions C/D/I, well approximated with dermabond RED with minimal serosanguinous output Neurologic: moves all extremities and awake Psychiatric: Orientation: alert and oriented x 3 Genitourinary: Capps patent and draining clear pink-tinged urine Results & Data Vital Signs (Past 12 Hours) Vital Signs Temp Pulse Pulse Resp BP Pulse Ox O2 Del Method 06/10/23 07:59 36.5 C 84 14 114/68 96 Room Air 06/10/23 03:02 36.8 C 79 16 118/73 94 Room Air 06/09/23 23:10 36.9 C 85 14 123/70 96 Room Air PG Care Time/CCT Total # of Minutes Spent Total Time Spent with Patient: Total time spent is greater than 50% in coordination of care (as documented) at patient's floor/unit and/or counseling patient: Coding Level of Care Code None Diagnoses Hydronephrosis N13.1 Hydronephrosis type: with other ureteral stricture UPJ (ureteropelvic junction) obstruction N13.5 (1) Hydronephrosis Hydronephrosis type: with other ureteral stricture Qualified Code(s): N13.1 - Hydronephrosis with ureteral stricture, not elsewhere classified
[2023-06-10] MEDS: oxyCODONE HCL IR 5 MG TAB (IMMEDIATE RELEASE) PO PRN (09:19)
--- NOTE | 2023-06-20 14:21 | Discharge Summary ---
Date of Service June 20, 2023 Admission HPI Per Admitting Provider Patient here for procedure. No changes in medical issues. No major changes in urinary issues. Continued issues and concerns. No change in pain or discomfort. No severe fevers or chills. No chest pain or shortness of breath. Risks and benefits discussed at length for procedure. These include bleeding, infection, injury to surrounding tissues or organs, and risks associated with anesthesia. Patient and/or family states understanding and agrees to proceed. Consent and supporting information completed. Admission Exam Per Admitting Provider General: well-appearing, no acute distress HEENT: Normocephalic, mucous membranes moist Pulmonary: Nonlabored respirations Abdomen: Nondistended Extremities: Moves all 4 spontaneously Neuro: No gross deficits Psych: alert and oriented, normal mood Skin: Warm, dry, no rashes noted Principal Diagnosis UPJ obstruction Discharge Exam Constitutional well developed and well nourished; no acute distress Respiratory normal respiratory effort; no respiratory distress and no labored breathing Gastrointestinal (Abdomen) Inspection/Auscultation: abdomen normal to inspection Percussion/Palpation: abdomen soft; abdomen nontender Musculoskeletal Head/Neck/Chest: normocephalic Neurologic moves all extremities and awake Psychiatric Orientation: alert and oriented x 3 Discharge Data Allergies Allergy/AdvReac Type Severity Reaction Status Date / Time pineapple Allergy Unknown Redness of Verified 06/09/23 06:18 Skin-with pineapple juice Procedures Performed Operation Date: 06/09/23 07:30 Actual Procedures p Robotic Assisted Laparoscopic Dismemebered Pyeloplasty(Right) - Arthur Hardin, Hospital Course (1) Hydronephrosis: (2) UPJ (ureteropelvic junction) obstruction: 22 yo/M POD #1 s/p Robotic Assisted Laparoscopic Dismemebered Pyeloplasty (right) with Dr. Hardin Patient afebrile with stable vitals Labscreatinine 1.46, WBC 9.7, hemoglobin 13.1 Post op KUB with stent in good position Subjectively doing well Minimal pain, adequately controlled with scheduled Tylenol Capps patent and draining clear pink tinged urine Remove Capps catheter this am Tolerating clear liquid diet--will advance diet for breakfast and dc IV fluids Incisions appropriate RED drain with minimal output--plan to remove drain prior to discharge Ambulate this morning Anticipate discharge to home later today presuming he continues to progress as expected Total Time Total Time Spent Total Time Spent (In Minutes): 29 Discharge Plan Discharge Items Patient Disposition: Home - Self-Care Reason For Visit: Hydronephrosis, MIRIAM (Acute Kidney Injury), Acute R Discharge Diagnosis: Hydronephrosis, MIRIAM, acute right flank pain, UPJ obstruction Activity: Per Instructions section Lifting: No more than 25 pounds Bathing Comment: Okay to shower after discharge Sexual Activity: When tolerated Exercise/Sports: Wait until after follow-up appointment Driving/Machine Use: No driving while taking prescription pain medication Non-emergency contact: Surgeon and Urologist Call non-emergency contact if: your pain is not controlled, your temperature is above 101, your wound has increased redness, your wound has increased drainage and your wound pain has increased Follow-up/Referrals: Arthur Hardin DO [Physician] - 07/05/23 8:35 am Felisa Meza CRNP [Primary Care Provider] - Diet: Regular Addtl Attending Provider Instructions: Please take all medications as prescribed and keep all follow-ups as scheduled. Please call our office at [phone] with any questions, concerns or need to reschedule appointments for any reason. We are happy to assist you. Recovering at home: We recommend having someone with you for the first few days after surgery to help care for you. It is okay to shower tomorrow. Please avoid swimming, bathing or using hot tub until incisions are well healed. Avoid driving until you are not requiring pain medication any further. Walk at least a few times a day. Increase your distance, as you feel able. Stairs in your home are okay. Please avoid strenuous or sexual activity until your follow-up. We recommend using stool softener (i.e. Colace) to prevent constipation and straining, especially the first two weeks post operatively. Call [facility] at [phone] if you experience: Chest pain or trouble breathing (call [phone] or go to the hospital). Fever of 101F or higher Symptoms of infection at incision site, including redness or swelling, warmth, or bad-smelling drainage If you have catheter, and you notice: o Bloody urine or drainage that is dark red or has large clots (Please remember a small amount of blood is normal) o No drainage from the catheter for more than 6 hours o The catheter comes out of your bladder Pain that is not controlled with medicines Pending Studies at Discharge: Yes Stand-Alone Forms: My [facility], Smoking Cessation Medications and DC Order Prescriptions: New oxycodone-acetaminophen [Percocet] 5-325 mg tablet 1 tab PO TID PRN (Reason: pain) Qty: 10 0RF Rx Instructions: post op pain Continued acetaminophen 325 mg tablet 650 mg PO UD PRN (Reason: pain) Discharge Orders: Discharge Order (Routine); Ordered 06/10/23 Ordered By: Arthur Hardin Admission Data Admit Date/Time: 06/09/23 11:13 Attending Provider: Arthur Hardin Admit Provider: Arthur Hardin Primary Care Provider: Felisa Meza Other Interventions: Discharge Summary Assessment (RN) Last Done: 06/10/23 16:25 Coding Level of Care Code 56034 IN/OBS DISCH 30 MIN/LESS Diagnoses Hydronephrosis N13.1 Hydronephrosis type: with other ureteral stricture UPJ (ureteropelvic junction) obstruction N13.5
== END 2023-06-10 16:50 | disposition home or self-care (01) ==
LOC: ASU 06:05 → INTOOBSV 11:13 → 3W 11:13
DX: N13.5 Crossing vessel and stricture of ureter without hydronephrosis; N13.1 Hydronephrosis with ureteral stricture, not elsewhere classified; K40.90 Unilateral inguinal hernia, without obstruction or gangrene, not specified as recurrent; Z87.891 Personal history of nicotine dependence